=== PATIENT | male | born 1955 | race Caucasian/White ===

== ENCOUNTER → 2020-08-15 | Outpatient (CLI) | payer MEDICARE ==
[~2020-08-15] MED LIST: ALLOPURINOL300 MG PO; ASPIRIN BUFFER325 MG PO; CITALOPRAM HBR40 MG PO; CRESTOR10 MG PO; ENALAPRIL MALE2.5 MG PO; FAMOTIDINE40 MG PO; FENTANYL CITRATE/PF 100MCG/2 ML INJ ONE; ISOSORBIDE MONO30 M1 PO; LANSOPRAZOLE30 MG PO; METFORMIN HCL500 MG PO; METOPROLOL TART25 MG PO; METOPROLOL TART50 MG PO; MIDAZOLAM HCL 2 MG/2 ML VIAL ONE; PLAVIX75 MG PO; SPIRIVA18 MCG INH; TRAZODONE HCL50 MG PO
[2020-08-15 09:09] LABS: HEMOGLOBIN 14.2 g/dL (14.0-18.0)
[2020-08-15 09:20] LABS: INR 1.06; PARTIAL THROMBOPLASTIN TIME 24.8 seconds (23.8-35.5); PROTHROMBIN TIME 14.3 seconds (11.9-14.5)
--- NOTE | 2020-08-15 11:26 | Diagnostic Imaging Report ---
Chest, 1 view, 08/15/2020. History: Post left lung biopsy. Comparison: CT from today. Findings: The cardiomediastinal silhouette and pulmonary vasculature are within normal limits for a portable exam. Left suprahilar mass is again noted. There is no focal consolidation or pleural effusion. There is no visible pneumothorax. There are no acute osseous or soft tissue abnormalities. Impression: No visible pneumothorax. Signed by: Perfecto Arce on 08/15/2020 11:23 AM
--- NOTE | 2020-08-15 11:35 | Diagnostic Imaging Report ---
CT guided lung biopsy. History: Left upper lobe mass. Contrast: None Medication: 1 mg Versed, 50 mg fentanyl were given intravenously for moderate sedation. Total intraprocedure sedation time: 30 minutes. Patient's vital signs were continuously monitored by radiology nursing. EBL: Less than 5 cc. Specimen: 4 core biopsy specimens, placed in formalin and sent to pathology. RADIATION DOSE: Total DLP: 1670 mGy*cm Dose modulation, iterative reconstruction, and/or weight based adjustment of the mA/kV was utilized to reduce the radiation dose to as low as reasonably achievable. Technique: After informed consent was obtained, the patient's chest was prepped and draped in a sterile fashion. The skin was anesthetized with 1% lidocaine without epinephrine and a dermatotomy was made. Using CT guidance, the left upper lobe anterior 3.4 cm mass was visualized and an 17-gauge needle guide was advanced left anterior chest. An 18-gauge 10 cm core biopsy needle was advanced coaxially into the mass for 4 samples. The needle was removed. Post biopsy CT scan was obtained. The patient tolerated procedure well and vital signs remained stable throughout the exam. Follow-up CT scan demonstrates minimal pneumothorax anteromedially. Patient is asymptomatic. IMPRESSION: 1. Successful CT guided left upper lobe lung biopsy with conscious sedation. 2. Minimal left anterior asymptomatic pneumothorax. Follow-up chest x-ray was ordered. Signed by: Perfecto Arce on 08/15/2020 11:32 AM
--- NOTE | 2020-08-15 13:31 | Diagnostic Imaging Report ---
Chest, 1 view, 08/15/2020. History: Post lung biopsy. Comparison: X-ray from earlier today. Findings: The cardiomediastinal silhouette and pulmonary vasculature are within normal limits for a portable exam. There is no focal consolidation or pleural effusion. There is no evidence of pneumothorax. Left suprahilar mass is unchanged. There are no acute osseous or soft tissue abnormalities. Impression: No evidence of pneumothorax. Signed by: Perfecto Arce on 08/15/2020 1:28 PM
== END ==
LOC: CT 08:40
PROVIDERS: ATTEND Internal Medicine Critical Care Medicine
DX: R91.8 Other nonspecific abnormal finding of lung field (principal); Z11.59 Encounter for screening for other viral diseases
CPT/HCPCS: 32405; 36415; 71045; 77012; 85014; 85049; 85610; 85730; 88305; J2250; J3010; U0002; 88342; 99152; 99153

== ENCOUNTER 2020-09-20 18:36 | Emergency (ER) | payer MEDICARE, OTHER ==
[~2020-09-20] VITALS: Ht 185.4 cm; Wt 126.1 kg
[~2020-09-20 18:36] MED LIST changes: -FENTANYL CITRATE/PF 100MCG/2 ML INJ ONE; -MIDAZOLAM HCL 2 MG/2 ML VIAL ONE
[2020-09-20] MEDS ORDERED: DEXAMETHASONE SOD PHOS INJ 4 MG/ML VIAL IV ONE (19:00)
[2020-09-20 19:11] LABS: BASOPHILS % 0.2 % (0.0-1.0); HEMATOCRIT 44.5 % (38.2-49.6); HEMOGLOBIN 14.5 g/dL (14.0-18.0); LYMPHOCYTES # (AUTO) 0.7 (1.0-3.2); LYMPHOCYTES % 18.1 % (18.0-39.1); MEAN CORPUSCULAR HGB CONC 32.6 g/dL (31-35); MEAN CORPUSCULAR VOLUME 92.1 fL (81-99); MONOCYTES # (AUTO) 0.2 (0.2-0.8); MONOCYTES % 5.7 % (4.4-11.3); NEUTROPHILS % 75.5 % (38.7-80.0); PLATELET COUNT 99 x10e3/uL (140-360); RED BLOOD COUNT 4.83 x10e6/uL (4.3-5.7); RED CELL DISTRIBUTION WIDTH 16.5 % (11.7-14.4)
[2020-09-20 19:42] LABS: ALBUMIN 3.4 g/dL (3.5-5.0); ALBUMIN/GLOBULIN RATIO 0.9 (0.8-2.0); ANION GAP 19.3 mmol/L (8-16); CALCIUM 8.8 mg/dL (8.4-10.2); CREATININE, SERUM 1.98 mg/dL (0.72-1.25); POTASSIUM 4.3 mmol/L (3.5-5.1)
[2020-09-20] MEDS ORDERED: SODIUM CHLORIDE 0.9% 500ML 500 ML IV STA (19:57)
[2020-09-20 20:00] LABS: CREATINE KINASE MB 1.6 ng/mL (0-5.0)
[2020-09-20 21:28] VITALS: BP 125/99
== END 2020-09-20 22:44 | disposition other institution (70) ==
LOC: ER 19:22
DX: U07.1 COVID-19 (principal); R50.9 Fever, unspecified; R05 Cough; R06.02 Shortness of breath; E11.65 Type 2 diabetes mellitus with hyperglycemia; I10 Essential (primary) hypertension; J44.9 Chronic obstructive pulmonary disease, unspecified; I50.9 Heart failure, unspecified; I25.2 Old myocardial infarction; Z95.5 Presence of coronary angioplasty implant and graft
CPT/HCPCS: 36415; 71045; 80053; 82550; 82553; 83605; 83880; 84484; 85025; 87040; 87400; 93005; 99285; J1100; J7040; U0002